=== PATIENT | female | born 1995 | race African-American/Black ===

== ENCOUNTER 2018-10-30 14:43 | Emergency (ER) | payer BC ==
--- NOTE | 2018-10-30 15:52 | ER Document Report ---
ED Medical Screen (RME) - General Chief Complaint: Chest Pain Stated Complaint: CHEST PAIN Time Seen by Provider: 10/30/18 15:51 Mode of Arrival: Ambulatory Information source: Patient TRAVEL OUTSIDE OF THE [place] IN LAST 30 DAYS: No - HPI Patient complains to provider of: Chest pain Notes: 10/30/18 15:52 Patient is a 23-year-old female sent to the emergency room from urgent care center for complaints of left-sided chest pain which is worse with a deep breath and has been going on for the past week RAPID MEDICAL EVALUATION DISCLOSURE I have seen this patient as part of a Rapid Medical Evaluation and, if applicable, placed any initially appropriate orders. The patient will be seen and fully evaluated, including a full history and physical exam, by a provider (in Main ED or Fast Track) when a room becomes available. - Related Data Allergies/Adverse Reactions: No Known Allergies Allergy (Verified 10/30/18 15:48) Past Medical History - Social History Frequency of alcohol use: None Drug Abuse: None Renal/ Medical History: Denies: Hx Peritoneal Dialysis - Immunizations Hx Diphtheria, Pertussis, Tetanus Vaccination: Yes Physical Exam - Vital signs Vitals: Temp Pulse Resp BP Pulse Ox 98.7 F 81 18 128/82 H 97 10/30/18 15:04 10/30/18 15:04 10/30/18 15:04 10/30/18 15:04 10/30/18 15:04 Course - Vital Signs Vital signs: Temp Pulse Resp BP Pulse Ox 98.7 F 81 18 128/82 H 97 10/30/18 15:04 10/30/18 15:04 10/30/18 15:04 10/30/18 15:04 10/30/18 15:04
--- NOTE | 2018-10-30 16:13 | RADIOLOGY REPORT (SQ) ---
EXAM DESCRIPTION: CHEST 2 VIEWS COMPLETED DATE/TIME: 10/30/2018 4:05 pm REASON FOR STUDY: cp COMPARISON: None. EXAM PARAMETERS: NUMBER OF VIEWS: two views TECHNIQUE: Digital Frontal and Lateral radiographic views of the chest acquired. RADIATION DOSE: NA LIMITATIONS: none FINDINGS: LUNGS AND PLEURA: No opacities, masses or pneumothorax. No pleural effusion. MEDIASTINUM AND HILAR STRUCTURES: No masses or contour abnormalities. HEART AND VASCULAR STRUCTURES: Heart normal size. No evidence for failure. BONES: No acute findings. HARDWARE: None in the chest. OTHER: No other significant finding. IMPRESSION: NO ACUTE RADIOGRAPHIC FINDING IN THE CHEST. TECHNICAL DOCUMENTATION: JOB ID: [id number] [employer]- All Rights Reserved Reading location - IP/workstation name: [email or web address]
[2018-10-30 17:20] LABS: ABSOLUTE BASOPHILS # (AUTO) 0.1 10^3/uL (0.0-0.2); ABSOLUTE EOSINOPHILS # (AUTO) 0.2 10^3/uL (0.0-0.6); ABSOLUTE LYMPHOCYTES (AUTO) 3.1 10^3/uL (0.5-4.7); ABSOLUTE MONOCYTES (AUTO) 0.4 10^3/uL (0.1-1.4); ABSOLUTE NEUT (AUTO) 4.2 10^3/uL (1.7-8.2); BASOPHILS % (AUTO) 0.8 % (0-2); EOSINOPHILS % (AUTO) 2.3 % (0-6); HEMATOCRIT 40.7 % (36.0-47.0); HEMOGLOBIN 13.3 g/dL (12.0-15.5); LYMPHOCYTES % (AUTO) 38.9 % (13-45); MEAN CORPUSCULAR HEMOGLOBIN 24.9 pg (27.0-33.4); MEAN CORPUSCULAR HGB CONC 32.8 g/dL (32.0-36.0); MEAN CORPUSCULAR VOLUME 76 fl (80-97); MONOCYTES % (AUTO) 4.7 % (3-13); PLATELET COUNT 308 10^3/uL (150-450); RED BLOOD COUNT 5.35 10^6/uL (3.72-5.28); RED CELL DISTRIBUTION WIDTH 14.4 % (11.5-14.0); SEGMENTED NEUTROPHILS % (AUTO) 53.3 % (42-78); TOTAL CELLS COUNTED % (AUTO) 100 %; WHITE BLOOD COUNT 7.9 10^3/uL (4.0-10.5)
[2018-10-30 17:53] LABS: CREATINE KINASE MB 0.37 ng/mL (<4.55)
[2018-10-30 17:56] LABS: TROPONIN I < 0.012 ng/mL
[2018-10-30 18:18] LABS: ALANINE AMINOTRANSFERASE 13 U/L (9-52); ALKALINE PHOSPHATASE 69 U/L (38-126); ANION GAP 11 (5-19); ASPARTATE AMINO TRANSFERASE 25 U/L (14-36); BILIRUBIN,DIRECT 0.3 mg/dL (0.0-0.4); BILIRUBIN,TOTAL 0.5 mg/dL (0.2-1.3); BLOOD UREA NITROGEN 7 mg/dL (7-20); CALCIUM 9.9 mg/dL (8.4-10.2); CARBON DIOXIDE 30 mmol/L (22-30); CHLORIDE 101 mmol/L (98-107); CREATINE KINASE 95 U/L (30-135); GLUCOSE 96 mg/dL (75-110); POTASSIUM 3.7 mmol/L (3.6-5.0); SODIUM 141.6 mmol/L (137-145); TOTAL PROTEIN 8.6 g/dL (6.3-8.2)
--- NOTE | 2018-10-30 19:06 | ER Document Report ---
ED Cardiac - General Chief Complaint: Chest Pain Stated Complaint: CHEST PAIN Time Seen by Provider: 10/30/18 15:51 Mode of Arrival: Ambulatory Information source: Patient TRAVEL OUTSIDE OF THE [place] IN LAST 30 DAYS: No - HPI Patient complains to provider of: Chest pain Was the onset of pain: Gradual Is the pain a: New problem Chest pain location: Substernal Quality of pain: Mild Severity now: Mild Severity at worst: Mild Chest pain precipitating factors: At Rest Associated symptoms: None Exacerbated by: Denies Relieved by: Nothing Similar symptoms previously: No Recently seen / treated by doctor: Yes Notes: Patient is a 23-year-old female sent to the emergency room from urgent care center for complaints of left-sided chest pain which is worse with a deep breath and has been going on for the past week, patient reports a recent URI but no long cough today, denies fever, no recent long distance road trips, no OCP usage, no recent surgeries or injury - Related Data Allergies/Adverse Reactions: No Known Allergies Allergy (Verified 10/30/18 15:48) Past Medical History - General Information source: Patient - Social History Smoking Status: Never Smoker Frequency of alcohol use: None Drug Abuse: None Family History: Reviewed & Not Pertinent Patient has suicidal ideation: No Patient has homicidal ideation: No Renal/ Medical History: Denies: Hx Peritoneal Dialysis - Immunizations Hx Diphtheria, Pertussis, Tetanus Vaccination: Yes Review of Systems - Review of Systems Constitutional: No symptoms reported EENT: No symptoms reported Cardiovascular: See HPI Respiratory: No symptoms reported Gastrointestinal: No symptoms reported Genitourinary: No symptoms reported Female Genitourinary: No symptoms reported Musculoskeletal: No symptoms reported Skin: No symptoms reported Hematologic/Lymphatic: No symptoms reported Neurological/Psychological: No symptoms reported -: Yes All other systems reviewed and negative Physical Exam - Vital signs Vitals: Temp Pulse Resp BP Pulse Ox 98.7 F 81 18 128/82 H 97 10/30/18 15:04 10/30/18 15:04 10/30/18 15:04 10/30/18 15:04 10/30/18 15:04 Interpretation: Normal - General General appearance: Appears well, Alert - HEENT Head: Normocephalic, Atraumatic Eyes: Normal Pupils: PERRL - Respiratory Respiratory status: No respiratory distress Chest status: Nontender Breath sounds: Normal Chest palpation: Normal - Cardiovascular Rhythm: Regular Heart sounds: Normal auscultation Murmur: No - Abdominal Inspection: Normal Distension: No distension Bowel sounds: Normal Tenderness: Nontender Organomegaly: No organomegaly - Back Back: Normal, Nontender - Extremities General upper extremity: Normal inspection, Nontender, Normal color, Normal ROM, Normal temperature General lower extremity: Normal inspection, Nontender, Normal color, Normal ROM, Normal temperature, Normal weight bearing. No: Rosalina's sign - Neurological Neuro grossly intact: Yes Cognition: Normal Orientation: AAOx4 [place] Coma Scale Eye Opening: Spontaneous Lily Coma Scale Verbal: Oriented [place] Coma Scale Motor: Obeys Commands Lily Coma Scale Total: 15 Speech: Normal Motor strength normal: LUE, RUE, LLE, RLE Sensory: Normal - Psychological Associated symptoms: Normal affect, Normal mood - Skin Skin Temperature: Warm Skin Moisture: Dry Skin Color: Normal Course - Re-evaluation Re-evalutation: 10/30/18 20:25 Lab and imaging findings unremarkable and discussed with patient, she is otherwise young and healthy and has no risk factors for heart disease, heart score 0, patient therefore discharged with instructions for follow-up and advised to return if symptoms worsen, patient acknowledges understanding and agreement with this plan - Vital Signs Vital signs: Temp Pulse Resp BP Pulse Ox 99.7 F 83 18 120/77 97 10/30/18 19:15 10/30/18 19:15 10/30/18 19:15 10/30/18 19:15 10/30/18 19:15 - Laboratory Result Diagrams: 10/30/18 17:00 10/30/18 17:00 Laboratory results interpreted by me: 10/30/18 10/30/18 17:00 17:00 RBC 5.35 H MCV 76 L MCH 24.9 L RDW 14.4 H Total Protein 8.6 H - Diagnostic Test Radiology reviewed: Image reviewed, Reports reviewed - EKG Interpretation by Me EKG shows normal: Sinus rhythm Rate: Normal Rhythm: NSR Discharge - Discharge Clinical Impression: Chest pain Qualifiers: Chest pain type: unspecified Qualified Code(s): R07.9 - Chest pain, unspecified Condition: Stable Disposition: HOME, SELF-CARE Instructions: Chest Pain of Unclear Cause ([facility]) Additional Instructions: Follow up with your primary care provider in one to 2 days. Return to the emergency room immediately if symptoms worsen or any additional concerns.
[2018-10-30 19:16] VITALS: BP 120/77
--- NOTE | 2018-10-31 00:12 | EKG REPORT ---
SEVERITY:- NORMAL ECG - SINUS RHYTHM : Confirmed by: Mickie Edward 31-Oct-2018 00:12:23
== END 2018-10-30 19:16 | disposition home or self-care (01) ==
LOC: ER 14:43
DX: R07.9 Chest pain, unspecified (principal)
CPT/HCPCS: 36415; 71046; 80053; 82550; 82553; 84484; 85025; 93005; 93010; 99284

== ENCOUNTER 2019-05-23 10:00 | Emergency (ER) | payer BC ==
--- NOTE | 2019-05-23 10:42 | ER Document Report ---
ED Medical Screen (RME) - General Chief Complaint: Vaginal Bleeding Stated Complaint: VAGINAL BLEEDING, CRAMPING Time Seen by Provider: 05/23/19 10:41 TRAVEL OUTSIDE OF THE [place] IN LAST 30 DAYS: No - HPI Notes: 05/23/19 10:46 23-year-old female to the emergency department with complaints of vaginal bleeding and pelvic cramping for the past week. She states that she had a positive home test last Tuesday. She states that her last menstrual period was in March. She has never been before. I performed a medical screening exam on patient and have ordered initial studies and imaging for patient. We will have main side provider assume care and further manage. - Related Data Allergies/Adverse Reactions: No Known Allergies Allergy (Verified 05/23/19 10:07) Past Medical History - Social History Chew tobacco use (# tins/day): No Frequency of alcohol use: None Drug Abuse: None Renal/ Medical History: Denies: Hx Peritoneal Dialysis - Immunizations Hx Diphtheria, Pertussis, Tetanus Vaccination: Yes Physical Exam - Vital signs Vitals: Temp Pulse Resp BP 98.5 F 84 18 137/80 H 05/23/19 10:04 05/23/19 10:04 05/23/19 10:04 05/23/19 10:04 Course - Vital Signs Vital signs: Temp Pulse Resp BP Pulse Ox 98.5 F 84 18 137/80 H 05/23/19 10:04 05/23/19 10:04 05/23/19 10:04 05/23/19 10:04
[2019-05-23 11:08] LABS: APPEARANCE,URINE CLEAR; BILIRUBIN,URINE NEGATIVE (NEGATIVE); COLOR,URINE YELLOW; GLUCOSE, URINE NEGATIVE (NEGATIVE); KETONES,URINE NEGATIVE (NEGATIVE); LEUKOCYTE ESTERASE,URINE NEGATIVE (NEGATIVE); NITRITE,URINE NEGATIVE (NEGATIVE); PROTEIN,URINE NEGATIVE (NEGATIVE); URINE SPECIFIC GRAVITY 1.017
[2019-05-23 11:47] LABS: ABSOLUTE LYMPHOCYTES (AUTO) 1.8 10^3/uL (0.5-4.7); ABSOLUTE MONOCYTES (AUTO) 0.4 10^3/uL (0.1-1.4); ABSOLUTE NEUT (AUTO) 6.1 10^3/uL (1.7-8.2); BASOPHILS % (AUTO) 0.4 % (0-2); EOSINOPHILS % (AUTO) 0.4 % (0-6); HEMATOCRIT 37.1 % (36.0-47.0); HEMOGLOBIN 12.1 g/dL (12.0-15.5); LYMPHOCYTES % (AUTO) 21.5 % (13-45); MEAN CORPUSCULAR HEMOGLOBIN 24.8 pg (27.0-33.4); MEAN CORPUSCULAR HGB CONC 32.6 g/dL (32.0-36.0); MEAN CORPUSCULAR VOLUME 76 fl (80-97); PLATELET COUNT 254 10^3/uL (150-450); RED BLOOD COUNT 4.89 10^6/uL (3.72-5.28); RED CELL DISTRIBUTION WIDTH 14.7 % (11.5-14.0); SEGMENTED NEUTROPHILS % (AUTO) 72.7 % (42-78); TOTAL CELLS COUNTED % (AUTO) 100 %; WHITE BLOOD COUNT 8.3 10^3/uL (4.0-10.5)
--- NOTE | 2019-05-23 12:31 | RADIOLOGY REPORT (SQ) ---
EXAM DESCRIPTION: U/S OB TRANSVAG W/DOPPLER COMPLETED DATE/TIME: 05/23/2019 12:16 pm REASON FOR STUDY: + home , bleeding cramping, eval ectopic COMPARISON: None. TECHNIQUE: Transvaginal static and realtime grayscale images acquired of the pelvis. Additional hilton cted spectral and color Doppler images recorded. All images stored on PACs. bHCG: Pending. CLINICAL DATES: LMP 04/14/2019. 5 weeks 4 days. LIMITATIONS: None. FINDINGS: FETUS: Single Living intrauterine . ULTRASOUND EGA: 5 weeks 5 days. ULTRASOUND ROEL: 01/18/2020 EFW: Not applicable less than 20 weeks. CRL: 0.2 cm FHR: Not seen. Beats per minute. SURVEY: Too early to assess. AMNIOTIC FLUID: Adequate amount. PLACENTA: Not yet developed due to early gestation. SUBCHORIONIC BLEED: No SIZE OF BLEED: Not applicable. UTERUS: No masses. No anomalies. CERVICAL LENGTH: 2.6 cm. Closed. RIGHT ADNEXA: Normal ovary with normal vascular flow. 2.7 x 1.9 x 1.7 cm. No adnexal free fluid. No adnexal masses. LEFT ADNEXA: Ovary with normal vascular flow. 5.4 x 3.5 x 2.5 cm. There is a 22 mm left ovarian cys t. There is a 26 mm complex lesion on the left ovary. No adnexal free fluid. No adnexal masses. FREE FLUID: None. OTHER: No other significant finding. IMPRESSION: There is a gestational sac with what appears to be a pole. heart motion is not seen at this time. Follow-up as clinically indicated. There is a 26 mm complex lesion in the le ft ovary which may represent an involuting cyst or follicle. TECHNICAL DOCUMENTATION: JOB ID: [id number] [employer]- All Rights Reserved rev Reading location - IP/workstation name: [email or web address]
--- NOTE | 2019-05-23 13:05 | ER Document Report ---
ED General - General Chief Complaint: Vaginal Bleeding Stated Complaint: VAGINAL BLEEDING, CRAMPING Time Seen by Provider: 05/23/19 10:41 Primary Care Provider: ÁNGELA GONZALEZ MD [Primary Care Provider] - Follow up as needed Mode of Arrival: Ambulatory Information source: Patient Notes: This 23-year-old female presents emergency department with complaints of possibl e . Reports that she took a home test on Tuesday and it was positive. Reports last menstrual period was April 14. G1, P0. She reports she experience some vaginal bleeding yesterday none today. She reports she is been having abdominal cramps that come and go for the past week. She reports feels like menstrual cramps. She denies trauma. Denies pain with void. Denies vaginal discharge. Denies fever vomiting diarrhea. TRAVEL OUTSIDE OF THE [place] IN LAST 30 DAYS: No - HPI Onset: Last week Onset/Duration: Waxing and waning Quality of pain: Cramping Associated symptoms: None Exacerbated by: Denies Relieved by: Denies Similar symptoms previously: No Recently seen / treated by doctor: No - Related Data Allergies/Adverse Reactions: No Known Allergies Allergy (Verified 05/23/19 10:07) Past Medical History - General Information source: Patient Last Menstrual Period: 04/14/19 - Social History Smoking Status: Never Smoker Chew tobacco use (# tins/day): No Frequency of alcohol use: None Drug Abuse: None Occupation: [employer] Lives with: Alone Family History: Reviewed & Not Pertinent Patient has suicidal ideation: No Patient has homicidal ideation: No - Medical History Medical History: Negative Renal/ Medical History: Denies: Hx Peritoneal Dialysis Surgical Hx: Negative - Immunizations Hx Diphtheria, Pertussis, Tetanus Vaccination: Yes Review of Systems - Review of Systems Notes: Review HPI for review of systems., All other systems negative Physical Exam - Vital signs Vitals: Temp Pulse Resp BP 98.5 F 84 18 137/80 H 05/23/19 10:04 05/23/19 10:04 05/23/19 10:04 05/23/19 10:04 - General General appearance: Appears well, Alert In distress: None - HEENT Head: Normocephalic Eyes: Normal Conjunctiva: Normal Mucous membranes: Normal, Moist Neck: Normal, Supple. No: Lymphadenopathy - Respiratory Respiratory status: No respiratory distress Chest status: Nontender Breath sounds: Normal Chest palpation: Normal - Cardiovascular Rhythm: Regular Heart sounds: Normal auscultation Murmur: No - Abdominal Inspection: Normal Distension: No distension Bowel sounds: Normal Tenderness: Nontender Organomegaly: No organomegaly - Back Back: Normal - Extremities General upper extremity: Normal ROM, Normal strength General lower extremity: Normal ROM, Normal strength - Neurological Neuro grossly intact: Yes Cognition: Normal Orientation: AAOx4 Lily Coma Scale Eye Opening: Spontaneous Josephine Coma Scale Verbal: Oriented Lily Coma Scale Motor: Obeys Commands Josephine Coma Scale Total: 15 Speech: Normal - Psychological Associated symptoms: Normal affect, Normal mood - Skin Skin Temperature: Warm Skin Moisture: Dry Skin Color: Normal Course - Re-evaluation Re-evalutation: 05/23/19 13:02 23-year-old female presents emergency department with positive home test on Tuesday. G1, P0. Mom reports vaginal bleeding yesterday none today. Reports abdominal cramps that come and go for the past week. Transvaginal ultrasound shows a 5-week 5-day IUP. No heart [place] [id number]. Patient is O+. Patient was instructed on ultrasound reports with no heart rate detected. She was instructed that it may be too early to obtain heart rate. She was instructed on the importance of follow-up with a repeat beta-hCG on Tuesday. She was also instructed on the importance of follow-up with ultrasound within the week and if she has any problems such as fever Vag ble eding increased abdominal pain she is to return here. She verbalized understanding to all instructions. 05/23/19 11:33 MCV 76 fl (80-97) L 05/23/19 11:33 MCH 24.8 pg (27.0-33.4) L 05/23/19 11:33 MCHC 32.6 g/dL (32.0-36.0) 05/23/19 11:33 RDW 14.7 % (11.5-14.0) H 05/23/19 11:33 Seg Neutrophils % 72.7 % (42-78) 05/23/19 11:33 Urine Color YELLOW 05/23/19 10:45 Urine Appearance CLEAR 05/23/19 10:45 Urine pH 7.0 (5.0-9.0) 05/23/19 10:45 Ur Specific [place] 1.017 05/23/19 10:45 Urine Protein NEGATIVE mg/dL (NEGATIVE) 05/23/19 10:45 Urine Glucose (UA) NEGATIVE mg/dL (NEGATIVE) 05/23/19 10:45 Urine Ketones NEGATIVE mg/dL (NEGATIVE) 05/23/19 10:45 Urine Blood NEGATIVE (NEGATIVE) 05/23/19 10:45 Urine Nitrite NEGATIVE (NEGATIVE) 05/23/19 10:45 Ur Leukocyte Esterase NEGATIVE (NEGATIVE) 05/23/19 10:45 Urine WBC (Auto) 1 /HPF 05/23/19 10:45 Urine RBC (Auto) 1 /HPF 05/23/19 10:45 Blood Type O POSITIVE 05/23/19 11:33 Transvaginal US 05/23/19 10:45 IMPRESSION: There is a gestational sac with what appears to be a pole. heart motion is not seen at this time. Follow-up as clinically indicated. There is a 26 mm complex lesion in the left ovary which may represent an involuting cyst or follicle. - Vital Signs Vital signs: Temp Pulse Resp BP Pulse Ox 98.7 F 82 16 120/73 100 05/23/19 13:34 05/23/19 13:34 05/23/19 13:34 05/23/19 13:34 05/23/19 13:34 - Laboratory Result Diagrams: 05/23/19 11:33 Laboratory results interpreted by me: 05/23/19 05/23/19 05/23/19 10:45 10:45 11:33 MCV 76 L MCH 24.8 L RDW 14.7 H Beta HCG, Quant Urine Urobilinogen 2.0 H Urine HCG, Qual POSITIVE H 05/23/19 11:33 MCV MCH RDW Beta HCG, Quant 67053.00 H Urine Urobilinogen Urine HCG, Qual - Diagnostic Test Radiology reviewed: Image reviewed, Reports reviewed Discharge - Discharge Clinical Impression: Vaginal bleeding during , Abdominal cramping Qualifiers: Weeks of gestation: less than 8 weeks Qualified Code(s): Z3A.01 - Less than 8 w eeks gestation of Condition: Stable Disposition: HOME, SELF-CARE Instructions: Bleeding During Early ([facility]), [facility] [employer] [facility], [facility], ([facility]), [facility] ([facility]) Additional Instructions: *You have been evaluated for abdominal cramping, with vaginal bleeding *Your transvaginal ultrasound showed a 5-week 5-day IUP no heart rate was visualized. This may be because it is too early. You will need a follow up ultrasound to re-evaluate for a heart rate. *You need a follow-up beta-hCG this Tuesday. You may call [facility] 2 hours after your test from 2pm-9pm at [phone] for your results. Your beta-hCG today was [id number]. *Follow up with a TELEMARKETING MANAGER or the health department within one week *Return to ED for worsening condition, changes, needs, increased bleeding, increased abdominal pain, concerns Forms: Elevated Blood Pressure, Follow-Up Laboratory Testing, Return to Work Referrals: ÁNGELA GONZALEZ MD [Primary Care Provider] - Follow up as needed
[2019-05-23 13:36] VITALS: BP 120/73
== END 2019-05-23 13:40 | disposition home or self-care (01) ==
LOC: ER 10:00
DX: O20.9 Hemorrhage in early pregnancy, unspecified (principal); R10.9 Unspecified abdominal pain; Z3A.01 Less than 8 weeks gestation of pregnancy
CPT/HCPCS: 36415; 76817; 81001; 81025; 84702; 85025; 86900; 86901; 93976; 99284

== ENCOUNTER → 2019-05-25 | Outpatient (CLI) | payer BC | LOC: LAB 12:38 | PROVIDERS: ATTEND Nurse Practitioner Family | DX: O46.90 Antepartum hemorrhage, unspecified, unspecified trimester (principal) | CPT/HCPCS: 36415; 84702 ==